=== PATIENT | female | born 1955 | race Caucasian/White ===

== ENCOUNTER 2020-06-06 21:19 | Emergency (ER) | payer MEDICARE, OTHER ==
[~2020-06-06] VITALS: Ht 175.3 cm; Wt 79.5 kg
[2020-06-06 21:26] VITALS: TEMP 98.9
[2020-06-06] MEDS ORDERED: DOXYCYCLINE 10100 MG PO (21:51)
[2020-06-06 22:22] VITALS: BP 135/64; PULSE 61
== END 2020-06-06 22:20 | disposition home or self-care (01) ==
LOC: COL.ER 21:19
DX: S90.862A Insect bite (nonvenomous), left foot, initial encounter (principal); W57.XXXA Bitten or stung by nonvenomous insect and other nonvenomous arthropods, initial encounter